=== PATIENT | female | born 1945 | race Caucasian/White ===

== ENCOUNTER → 2017-12-25 | Outpatient (CLI) | payer MEDICARE | END | disposition home or self-care (01) | LOC: CVU 10:34 | PROVIDERS: ATTEND Internal Medicine Cardiovascular Disease | DX: I65.23 Occlusion and stenosis of bilateral carotid arteries (principal); I25.2 Old myocardial infarction; E78.5 Hyperlipidemia, unspecified; Z87.891 Personal history of nicotine dependence | CPT/HCPCS: 93880 ==

== ENCOUNTER 2019-01-08 09:39 | Outpatient (CLI) | payer MEDICARE | END 2019-01-08 23:59 | disposition home or self-care (01) | LOC: CVU 09:39 | PROVIDERS: ATTEND Internal Medicine Cardiovascular Disease | DX: I65.23 Occlusion and stenosis of bilateral carotid arteries (principal); I70.1 Atherosclerosis of renal artery; I35.0 Nonrheumatic aortic (valve) stenosis; I70.8 Atherosclerosis of other arteries; I70.0 Atherosclerosis of aorta; I11.0 Hypertensive heart disease with heart failure; I50.9 Heart failure, unspecified; E11.9 Type 2 diabetes mellitus without complications; I25.2 Old myocardial infarction; Z95.5 Presence of coronary angioplasty implant and graft; Z87.891 Personal history of nicotine dependence | CPT/HCPCS: 93880; 93975 ==

== ENCOUNTER 2019-05-02 06:49 | Outpatient (CLI) | payer MEDICARE | END 2019-05-02 23:59 | disposition home or self-care (01) | LOC: CVU 06:49 | PROVIDERS: ATTEND Internal Medicine Cardiovascular Disease | DX: I70.203 Unspecified atherosclerosis of native arteries of extremities, bilateral legs (principal); I77.1 Stricture of artery; I10 Essential (primary) hypertension; E11.9 Type 2 diabetes mellitus without complications; E78.5 Hyperlipidemia, unspecified; I25.2 Old myocardial infarction; Z72.0 Tobacco use; Z95.828 Presence of other vascular implants and grafts | CPT/HCPCS: 93922; 93925; 93978 ==

== ENCOUNTER 2020-05-05 12:13 | Outpatient (CLI) | payer MEDICARE ==
[2020-05-05] MEDS ORDERED: REGADENOSON 0.4 MG/5 ML SYRINGE ONE (14:40)
== END 2020-05-05 23:59 | disposition home or self-care (01) ==
LOC: CFH 12:13
PROVIDERS: ATTEND Internal Medicine Cardiovascular Disease
DX: I25.9 Chronic ischemic heart disease, unspecified (principal); I10 Essential (primary) hypertension; I25.10 Atherosclerotic heart disease of native coronary artery without angina pectoris
CPT/HCPCS: 78452; 93017; A9502; J2785